=== PATIENT | male | born 1990 | race Caucasian/White ===

== ENCOUNTER 2025-01-08 18:18 | Emergency (ER) | payer BC ==
[~2025-01-08] VITALS: Ht 185.4 cm; Wt 74.0 kg
[2025-01-08 18:20] VITALS: BP 137/71; PULSE 66; RESP 16; TEMP 98.5; O2SAT 99
--- NOTE | 2025-01-08 19:39 | Physician Documentation ---
History of Present Illness ~ Chief Complaint: Laceration Stated Complaint: FINGER LAC Time Seen by MD: 19:11 [facility] Patient presents with a complaint of a right finger laceration on his 5th finger. Bleeding is controlled it is a minor laceration on the posterior aspect of his knuckle Day of Onset: Jan 08, 2025 Tetanus Within 5 Years: Yes Medication Reconciliation Allergies: Coded Allergies: No Known Allergies (Unverified , 01/08/25) Review of Systems All Other Systems at this time: Reviewed and Negative ROS As stated above in the HPI, otherwise all systems are reviewed and negative. Physical Exam Vital Signs: Temperature: 98.5, Source: Temporal, Heart Rate: 66, Respiratory Rate: 16, BP: 137/71, Pulse Oximetry: 99, Weight: 74.000 Oxygen Flow Rate: 0 Physical Exam General: Alert, no apparent distress. Extremities: Normal range of motion, no deformity. right 5th finger 1 cm laceration Neurologic: Oriented x4. Psychiatric: Normal mood and affect. Skin: Normal color, warm and dry. No edema, no ecchymosis. Procedures Laceration/Wound Repair Laceration : Anesthesia: Lidocaine Suture Size/Type: 4-0 Number of Superficial Sutures: 4 Dressing Applied: non-adherent Tolerated Procedure Well?: yes, no complications Progress Results/Orders Results/Orders Orders - BHAVIK ZUNIGA NP Laceration/I&D Tray Set Up (01/08/25 ) Completed Orders - BHAVIK ZUNIGA IT SECURITY ANALYST Lidocaine 1% 30ml Vial (Xylocaine 1% Via (01/08/25 19:27) Tetanus/Pertuss/Diph Acell/Pf (Boostrix (01/08/25 19:30) Vital Signs 01/08/25 18:20 Temp 98.5 Pulse 66 Resp 16 B/P (MAP) 137/71 Pulse Ox 99 O2 Flow Rate 0 Medical Decision Making Findings Small laceration was easily repaired on the right 5th finger. Advised the patient to keep the area clean and dry have it removed in 7-10 days Differential Dx:Considerations: Include: Abrasion, Avulsion, Contusion, Laceration, Fracture, Hematoma, Neurovascular injury, Retained foreign body, Other Departure Disposition: 01 HOME / SELF CARE / HOMELESS Impression: Primary Impression: Laceration Condition: Stable Discharge Instructions: Laceration Care, Adult, [id number] Additional Instructions: Have sutures removed in 7-10 days. Keep the area clean and dry monitor for increased pain swelling or drainage Referrals: NO PRIMARY CARE PROVIDER (PCP) Education Educated: Patient Educated regarding: diagnosis Signature Scribe Signature: h Attestation: Scribed for Bhavik Zuniga Certified Pharmacy Tech by Bhavik Crystal NP . 01/09/25 00:03 BHAVIK ZUNIGA NP Jan 08, 2025 19:39
[2025-01-08] MEDS: TETanus/Pertussis (Acell)/Diphther VAC/PF (Tdap-Adult) 0.5ml syringe IMVAC ONE (19:48)
[2025-01-08] MEDS: LIDOcaine 1% 30ml preserv. free vial SQ STA (19:48)
== END 2025-01-08 20:30 | disposition home or self-care (01) ==
LOC: ER 18:18
DX: S61.216A Laceration without foreign body of right little finger without damage to nail, initial encounter (principal); X58.XXXA Exposure to other specified factors, initial encounter; Y93.89 Activity, other specified; Y92.89 Other specified places as the place of occurrence of the external cause; Y99.8 Other external cause status
CPT/HCPCS: 12001; 99282